=== PATIENT | male | born 1985 | race Two or more races ===

== ENCOUNTER 2017-04-05 09:37 | Emergency (ER) | payer OTHER ==
[2017-04-05 09:58] VITALS: BP 159/113
--- NOTE | 2017-04-05 10:31 | ER Document Report ---
ED GI/ - General Mode of Arrival: Ambulatory Information source: Patient TRAVEL OUTSIDE OF THE [place] IN LAST 30 DAYS: No - HPI Patient complains to provider of: Other - penile laceration Onset: Other - 4 weeks ago Context: Other - see above Location: Other - penis Sexual history: Active Associated symptoms: Other - see notes above - General Chief Complaint: Penile Problem Stated Complaint: PENILE INJURY Time Seen by Provider: 04/05/17 10:23 Notes: 32 year old male presents to the ED complaining of a laceration just below his frenulum that occurred 4 weeks ago while engaging in oral sex. Patient states that the pain has been constant and describes it as a constant 'paper-cut sensation.' Patient has used Vaseline on the laceration, but reports pain when showering, having intercourse, and while working, and is inquiring about getting a circumcision. Patient reports some redness to the area, but denies discharge of swelling. (KELLEY DOUGLAS) - Related Data Allergies/Adverse Reactions: No Known Allergies Allergy (Verified 04/05/17 09:58) Past Medical History - General Information source: Patient - Social History Smoking Status: Current Every Day Smoker Chew tobacco use (# tins/day): Yes Frequency of alcohol use: Social Drug Abuse: None Family History: Reviewed & Not Pertinent Patient has suicidal ideation: No Patient has homicidal ideation: No - Medical History Medical History: Negative Renal/ Medical History: Denies: Hx Peritoneal Dialysis Surgical Hx: Negative Review of Systems - Review of Systems Constitutional: No symptoms reported EENT: No symptoms reported Cardiovascular: No symptoms reported Respiratory: No symptoms reported Gastrointestinal: No symptoms reported Genitourinary: No symptoms reported Male Genitourinary: See HPI, Other - Laceration just below the frenulum with associated erythema and pain.. denies: Penile discharge Musculoskeletal: No symptoms reported Skin: No symptoms reported Hematologic/Lymphatic: No symptoms reported Neurological/Psychological: No symptoms reported -: Yes All other systems reviewed and negative Physical Exam - Vital signs Vitals: Temp Pulse Resp BP Pulse Ox 98.0 F 56 L 16 159/113 H 98 04/05/17 09:54 04/05/17 09:54 04/05/17 09:54 04/05/17 09:54 04/05/17 09:54 - Notes Notes: GENERAL: Alert, interacts well. No acute distress. HEAD: Normocephalic, atraumatic. EYES: Pupils equal, round, and reactive to light. Extraocular movements intact. ENT: Oral mucosa moist, tongue midline. NECK: Full range of motion. Supple. Trachea midline. LUNGS: No respiratory distress. EXTREMITIES: Moves all 4 extremities spontaneously. No edema. GENITOURINARY: Uncircumcised. Healed laceration that has resulted in a skin tag to the base of the glans around the frenulum which is tender to palpate. No erythema, swelling, or discharge visualized. No other lesions noted. Penile exam was chaparoned by JANEEN Herrera. NEUROLOGICAL: Alert and oriented x3. Normal speech. PSYCH: Normal affect, normal mood. SKIN: Warm, dry, normal turgor. (KELLEY DOUGLAS) Course - Re-evaluation Re-evalutation: 04/05/17 10:39 Consistent with traumatic injury worsened by repetitive use, patient counseled on complete penile rest for the next 2 weeks prior to pursuing a circumcision. [place] reevaluation of this injury. No evidence of infection. Counseled on using barrier cream as well. (CHICHI MORROW) - Vital Signs Vital signs: Temp Pulse Resp BP Pulse Ox 98.0 F 56 L 16 159/113 H 98 04/05/17 09:54 04/05/17 09:54 04/05/17 09:54 04/05/17 09:54 04/05/17 09:54 Discharge - Discharge Clinical Impression: Penile pain Injury to penis Qualifiers: Encounter type: initial encounter Qualified Code(s): S39.94XA - Unspecified injury of external genitals, initial encounter Condition: Stable Disposition: HOME, SELF-CARE Additional Instructions: You must be on complete penile rest for the next 2 weeks. The only thing you are allowed to do is urinate. You should not masturbate, have intercourse or have oral sex. You should not engage in any activities that retract your foreskin beyond gently retracting the foreskin to clean it. Please continue barrier cream such as Vaseline to decrease pain Forms: Return to Work Referrals: BRAIN LAZARO DO [ASSOCIATE] - Follow up in 1 month Scribe Attestation: 04/05/17 11:55 I personally performed the services described in the documentation, reviewed and edited the documentation which was dictated to the scribe in my presence, and it accurately records my words and actions. (CHICHI MORROW) Scribe Documentation - Scribe Written by Felipa:: Felipa Breaux, 04/05/2017 1121 acting as scribe for :: Consuelo
== END 2017-04-05 10:52 | disposition home or self-care (01) ==
LOC: ER 09:37
DX: S39.94XA Unspecified injury of external genitals, initial encounter (principal); N48.89 Other specified disorders of penis; W45.8XXA Other foreign body or object entering through skin, initial encounter; F17.200 Nicotine dependence, unspecified, uncomplicated
CPT/HCPCS: 99283